=== PATIENT | male | born 1955 | race African-American/Black ===

== ENCOUNTER 2017-02-14 09:30 | Outpatient (CLI) | payer OTHER ==
[2014-01-27 03:40] VITALS: BP 172/68
[2017-02-14 10:05] LABS: eGFR (African) > 60; eGFR (Non-African) 60
== END 2017-02-14 09:31 ==
LOC: LAB 09:30
PROVIDERS: ATTEND Family Medicine
DX: Z00.00 Encounter for general adult medical examination without abnormal findings (principal)
CPT/HCPCS: 80053; 80061; G0103

== ENCOUNTER 2017-08-14 20:48 | Emergency (ER) | payer OTHER ==
[2017-08-14] MEDS: 0.9 % SODIUM CHLORIDE 1,000 ML IV ONE ×2 (21:10→22:35)
[2017-08-14] MEDS: ONDANSETRON HCL/PF 4 MG/ 2ML VIAL IVP ONE (21:25)
[2017-08-14 21:32] LABS: BASOPHILS % 0.2 (0.0-1.5); EOSINOPHILS % 1.3 % (0.0-6.8); MEAN CORPUSCULAR HEMOGLOBIN 30.6 pg (28.0-34.0); MEAN CORPUSCULAR VOLUME 96.7 fl (80.0-100.0); MONOCYTES % 3.8 % (0.0-11.0); NEUTROPHILS # 10.1 # k/uL (1.4-7.7)
[2017-08-14 21:40] LABS: eGFR (African) > 60; eGFR (Non-African) 51
--- NOTE | 2017-08-14 22:28 | ED Physician Documentation ---
General Adult - HISTORIAN Historian: patient, child - HPI Chief Complaint: General Adult Further Comments: yes (62 year old male patient presents with complaints of nausea, vomiting, diarrhea, fatigue, fever and chills which started yesterday.) - ROS CONST: recent illness EYES/ENT: none CVS/RESP: none GI/: vomiting, nausea, diarrhea. denies: abdominal pain, problems urinating, black stools MS/SKIN/LYMPH: none NEURO/PSYCH: denies: headache, fainting, dizziness, tingling, numbness, difficulty walking, difficulty with speech, anxiety, depression, other - PAST HX Past History: hypertension, other (HLD, gout) Allergies/Adverse Reactions: Allergies Allergy/AdvReac Type Severity Reaction Status Date / Time cephalexin monohydrate Allergy Verified 08/14/17 22:53 [From Keflex] codeine Allergy Verified 08/14/17 22:53 - SOCIAL HX Smoking History: non-smoker - FAMILY HX Family History: No - VITAL SIGNS Vital Signs: Vital Signs Temp Pulse Resp BP Pulse Ox 172/68 01/27/14 03:38 - REVIEWED ASSESSMENTS Nursing Assessment Reviewed: Yes Vitals Reviewed: Yes Progress - Progress Progress: 2 L NS given in ER, zofran given for nausea. Patient able to keep down POs in ER, states he feels much better at discharge. Positive Influenza B ED Results Lab/Radiology - Lab Results Lab Results: Lab Results 08/14/17 08/14/17 21:20 21:20 WBC 11.60 K/ul K/ul (4.00-12.00) RBC 4.72 M/ul M/ul (3.90-5.20) Hgb 14.5 g/dL g/dL (12.0-18.0) Hct 45.7 % % (37.0-53.0) MCV 96.7 fl fl (80.0-100.0) MCH 30.6 pg pg (28.0-34.0) MCHC 31.6 g/dL g/dL (30.0-36.0) RDW 12.8 % % (11.3-14.3) Plt Count 332 K/mm3 K/mm3 (130-400) Neut % (Auto) 87.3 % H % (39.0-79.0) Lymph % (Auto) 6.5 % L % (16.0-50.0) [place] % (Auto) 3.8 % % (0.0-11.0) Eos % (Auto) 1.3 % % (0.0-6.8) Baso % (Auto) 0.2 (0.0-1.5) Neut # (Auto) 10.1 # k/uL H # k/uL (1.4-7.7) Lymph # (Auto) 0.8 # k/uL # k/uL (0.6-4.0) [place] # (Auto) 0.4 # k/uL # k/uL (0.0-0.9) Eos # (Auto) 0.2 # k/uL # k/uL (0.0-0.6) Baso # (Auto) 0.0 # k/uL # k/uL (0.0-0.5) Reactive Lymphs % 0.9 % % (0.0-5.0) Reactive Lymphs # 0.1 # k/uL # k/uL (0.0-0.8) Sodium 147 mmol/L H mmol/L (136-145) Potassium 3.8 mmol/L mmol/L (3.5-5.1) Chloride 106 mmol/L mmol/L (98-107) Carbon Dioxide 24 mmol/L mmol/L (22-30) BUN 20 mg/dL mg/dL (9-20) Creatinine 1.50 mg/dL H mg/dL (0.66-1.25) Est GFR ( Amer) > 60 (60 - ) Est GFR (Non-Af Amer) 51 L (60 - ) Glucose 110 mg/dL H mg/dL (74-106) Calcium 9.5 mg/dL mg/dL (8.4-10.2) Total Bilirubin 0.9 mg/dL mg/dL (0.2-1.3) AST 59 U/L H U/L (15-46) ALT 64 U/L U/L (13-69) Alkaline Phosphatase 123 U/L U/L (38-126) Total Protein 8.1 g/dL g/dL (6.3-8.2) Albumin 4.3 g/dL g/dL (3.5-5.0) - Orders Orders: ED Orders Category Date Time Status Continuous EKG monitoring Q30M Care 08/14/17 20:56 Active Continuous Pulse Oximetry Q30M Care 08/14/17 20:[address] IV Lock 1T Care 08/14/17 20:56 Active CBC/PLATELET/DIFF Stat Lab 08/14/17 21:20 Completed CMP Stat Lab 08/14/17 21:20 Completed INFLUENZA A&B Stat Lab 08/14/17 21:19 Uncollected 0.9 % Sodium Chloride [Normal Saline] 1,000 ml Med 08/14/17 20:56 Discontinued IV NOW 0.9 % Sodium Chloride [Normal Saline] 1,000 ml Med 08/14/17 21:52 Discontinued IV NOW Ondansetron HCl/Pf [Zofran 4 mg/2 ml] Med 08/14/17 20:56 Discontinued 4 mg IVP NOW ONE General Adult Physical Exam - PHYSICAL EXAM GENERAL APPEARANCE: mild distress EENT: eye inspection normal, ENT inspection normal, pharynx normal, no signs of dehydration, [place], no nystagmus, TM's nml RESPIRATORY: no resp distress, chest non-tender, breath sounds normal CVS: reg rate & rhythm, heart sounds normal, equal pulses, no murmur, no gallop , PMI nml, no JVD, no friction rub, 24 ABDOMEN: soft, no organomegaly, normal bowel sounds, no abdominal bruit, no distension SKIN: normal color, warm/dry, NR, INT, PAL, DR EXTREMITIES: non-tender, normal range of motion, no evidence of injury, no edema , J, DESIGN INTERN NEURO: oriented X3, CN's nml as tested, motor nml, sensation nml, mood/affect nml Discharge Clincal Impression: Influenza B, Dehydration Nausea & vomiting Qualifiers: Vomiting type: unspecified Vomiting Intractability: non-intractable Qualified Code(s): R11.2 - Nausea with vomiting, unspecified Referrals: Primary Doctor,No [Primary Care Provider] - 2 Days Additional Instructions: A virus cannot be treated with antibiotics. Rest Have plenty of sleep and rest. Stay away from others while you have a cold or flu. Take simple painkillers Such as Tylenol or ibuprofen, to help relieve headaches, muscles aches and pains and fever. Keep hydrated (drink plenty of fluids) This will help keep your throat moist and replace fluid lost due to a fever and sweating. Plenty of water is best. Avoid caffeine and alcohol as they will make you more dehydrated. Eat soft food If you have a sore throat soft foods are easier to swallow. Foods such as chicken soup may help a sore throat and reduce mucous. technical support specialist an over the counter decongestant such as pseudoped, dayquil and Nyquil at your pharmacy. You may want to try Vicks rub on your chest and/or feet. ( Caution: Dayquil and Nyquil contain 325mg of Tylenol/acetaminophen per tablespoon) Cough drops as needed for cough and sore throat. Increase your fluid intake juices, hot tea, non-caffeinated beverages - gatorade, powerade Vitamin C may be helpful in decreasing the length of your cold. Use a humidifier in the room where you sleep. You can also sit in a steam filled bathroom 1-2 times a day. Tylenol every 4 hours 650mg -1000mg (do not exceed 4000mg in 24 hours) as needed for fever, pain and body aches. Alternate with Ibuprofen Ibuprofen 600-800mg every 6 hours as needed for fever, pain and body aches. See your primary care doctor if your symptoms become worse or do not improve in the next 3-4 days. technical support specialist your tamiflu and zofran tomorrow. Start your tamiflu in the morning. Condition: Stable Disposition: 01 HOME, SELF-CARE Decision to Admit: NO Decision Time: 22:28
[2017-08-15 00:08] VITALS: BP 112/68
== END 2017-08-14 23:30 | disposition home or self-care (01) ==
LOC: ED 20:48
DX: E86.0 Dehydration (principal); J09.X2 Influenza due to identified novel influenza A virus with other respiratory manifestations; R11.10 Vomiting, unspecified
CPT/HCPCS: 80053; 85025; 87400; 96360; 96361; 96375; 99283; J2405; J7030; S1016

== ENCOUNTER 2018-08-24 10:21 | Outpatient (CLI) | payer OTHER ==
[2017-08-15 00:08] VITALS: BP 112/68
--- NOTE | 2018-08-24 20:58 | Diagnostic Imaging Report ---
BARBARA WHITMAN [facility] [address] [facility] [address] [address] Report Submission Date: Aug 24, 2018 1:42:11 PM ADMINISTRATIVE ASSISTANT Patient Study Name: THONG LUND Date: Aug 24, 2018 12:37:49 PM ADMINISTRATIVE ASSISTANT Modality Type: DX Gender: M Description: KNEES BILATERAL STANDING AP : 59 Institution: [facility] Physician: BARBARA WHITMAN Examination: Plain film knees History: Chronic pain, no trauma Findings: 3 views of the right and left knees demonstrates osteopenia. Articular spurring. Medial joint space narrowing. No displaced fracture lucency. No joint effusion. Impression: Advanced articular degenerative changes. No evidence for fracture. Electronically signed on Aug 24, 2018 1:42:11 PM ADMINISTRATIVE ASSISTANT by: Aneudy DE LA ROSA
== END 2018-08-24 10:30 ==
LOC: RAD 10:21
PROVIDERS: ATTEND Family Medicine
DX: M25.561 Pain in right knee (principal); M25.562 Pain in left knee
CPT/HCPCS: 73565

== ENCOUNTER 2019-02-17 09:35 | Outpatient (CLI) | payer OTHER ==
[2017-08-15 00:08] VITALS: BP 112/68
[2019-02-17 10:16] LABS: HDL 31 mg/dL (>40); eGFR (Non-African) 59
== END 2019-02-17 09:37 ==
LOC: LAB 09:35
PROVIDERS: ATTEND Family Medicine
DX: Z13.220 Encounter for screening for lipoid disorders (principal); Z12.5 Encounter for screening for malignant neoplasm of prostate
CPT/HCPCS: 36415; 80053; 80061; 84153

== ENCOUNTER 2019-03-23 14:08 | Outpatient (CLI) | payer OTHER ==
[2017-08-15 00:08] VITALS: BP 112/68
--- NOTE | 2019-03-23 15:13 | Diagnostic Imaging Report ---
BARBARA WHITMAN [facility] [address] [address] Report Submission Date: Mar 23, 2019 2:27:30 PM CDT Patient Study Name: THONG LUND Date: Mar 23, 2019 2:05:53 PM CDT Modality Type: DX Gender: M Description: RT HIP 2VIEW COMPLETE : 59 Institution: [facility] Physician: BARBARA WHITMAN Examination: Plain film right hip History: RT HIP PAIN Comparison exams: None provided Findings: 2 views of the right hip demonstrates articular degenerative spurring. No fracture no dislocation. No soft tissue abnormality. Impression: Degenerative changes. No acute appearing osseous abnormality. Electronically signed on Mar 23, 2019 2:27:30 PM CDT by: Aneudy DE LA ROSA
== END 2019-03-23 14:10 ==
LOC: RAD 14:08
PROVIDERS: ATTEND Family Medicine
DX: M25.551 Pain in right hip (principal)
CPT/HCPCS: 73502